=== PATIENT | female | born 1955 | race Caucasian/White ===

== ENCOUNTER 2017-07-23 10:53 | Emergency (ER) | payer MEDICAID ==
[2017-07-23 11:07] VITALS: BP 156/89
--- NOTE | 2017-07-23 11:42 | EDM.PDOC ---
ED HPI GENERAL MEDICAL PROBLEM - General Chief Complaint: Chest Pain Stated Complaint: Chest pain Time Seen by Provider: 07/23/17 11:15 Source of Information: Reports: Patient, Provider (Dr. Chen ), RN Notes Reviewed History Limitations: Reports: No Limitations - History of Present Illness INITIAL COMMENTS - FREE TEXT/NARRATIVE: 61 year old female presents to the ED today for complaints of chest pain. She initially saw Dr. Chen in the clinic today and had an EKG. She was then sent here for further evaluation. The patient says she's had mild, substernal, chest pressure for approximately 17 days. She rates the pain 1-2/10. The pain does radiate into her left neck and down her left arm. She says her chest wall is tender to touch. She denies nausea or vomiting. She denies worsening chest pain with exertion. The pain does not change or improve with rest. She says that massaging the area does help. She says the pain started after her significant other 17 days ago. She reports that he weighted about 370 lbs. She repositioned him on the floor and performed CPR for approximately 15 minutes before EMS arrived. This is what she attribute the pain to. She said she didn't notice the pain for a couple days. She has a history of MS, hypothyroidism. Denies history of [place], CAD, high cholesterol, or hypertension. She smokes 1/2 ppd. No history of lung problems. Treatments SENIOR TALENT MANAGEMENT CONSULTANT: Reports: EKG Left Chest Pain Score (Numeric/FACES): 2 - Related Data Allergies Allergy/AdvReac Type Severity Reaction Status Date / Time Iodine and Iodide Containing Allergy Other Verified 07/23/17 11:09 Produc bees Allergy Anaphylactic Uncoded 06/25/15 13:[address] dye Allergy Airway Uncoded 06/25/15 13:09 Tightness metals Allergy Other Uncoded 06/25/15 13:09 narcotics Allergy Vomiting Uncoded 06/25/15 13:09 Home Meds: Home Meds Cholecalciferol (Vitamin D3) [Vitamin D-3] 4,000 unit PO DAILY 06/25/15 [History ] Levothyroxine [Synthroid] 100 mcg PO ACBREAKFAST 06/25/15 [History] Omeprazole Magnesium [Prilosec Otc] 20 mg PO DAILY 06/25/15 [History] SUMAtriptan [Imitrex] 6 mg SQ ASDIRECTED 06/25/15 [History] Aspirin 81 mg PO BEDTIME 07/23/17 [History] Diazepam [Valium] 5 mg PO TID PRN #15 tablet 07/23/17 [Rx] Multivitamin [Multivitamins] 1 each PO DAILY 07/23/17 [History] Past Medical History Gastrointestinal History: Reports: Other (See Below) Other Gastrointestinal History: heartburn Neurological History: Reports: MS Other Neuro History: optic neuritis Endocrine/Metabolic History: Reports: Hypothyroidism - Past Surgical History GI Surgical History: Reports: Appendectomy Female Surgical History: Reports: Hysterectomy Social & Family History - Tobacco Use Smoking Status *Q: Current Every Day Smoker Years of Tobacco use: 27 Packs/Tins Daily: 0.5 - Recreational Drug Use Recreational Drug Use: No ED ROS GENERAL - Review of Systems Review Of Systems: See Below Constitutional: Reports: No Symptoms. Denies: Fever, Chills Respiratory: Reports: No Symptoms. Denies: Shortness of Breath, Pleuritic Chest Pain, Cough, Sputum Cardiovascular: Reports: Chest Pain. Denies: Dyspnea on Exertion, Edema, Lightheadedness, Palpitations, Syncope GI/Abdominal: Reports: No Symptoms. Denies: Abdominal Pain, Nausea, Vomiting Psychiatric: Reports: Anxiety ED EXAM, GENERAL - Physical Exam Exam: See Below Exam Limited By: No Limitations General Appearance: Alert, WD/WN, No Apparent Distress Respiratory/Chest: No Respiratory Distress, Lungs Clear, Normal Breath Sounds, No Accessory Muscle Use, Other (mild anterior, left chest wall tenderness ) Cardiovascular: Normal Peripheral Pulses, Regular Rate, Rhythm, No Edema, No Murmur GI/Abdominal: Normal Bowel Sounds, Soft, Non-Tender Extremities: Normal Inspection, Normal Range of Motion, Non-Tender. No: Harman' s Sign, Increased Warmth, Redness Neurological: Alert, Oriented, Normal Cognition Skin Exam: Warm, Dry, Intact EKG INTERPRETATION EKG Date: 07/23/17 Time: 10:27 (Performed at [facility] ) Rhythm: NSR (Sinus Sulaiman) Rate (Beats/Min): 58 [place]: Normal P-Wave: Present QRS: Normal ST-T: Normal QT: Normal EKG Interpretation Comments: EKG read by Dr. Crow. No acute ischemic changes. Course - Vital Signs Last Recorded V/S: Last Vital Signs Temp 97.8 F 07/23/17 11:03 Pulse 68 07/23/17 11:03 Resp 16 07/23/17 11:03 BP 156/89 H 07/23/17 11:03 Pulse Ox 96 07/23/17 11:03 - Orders/Labs/Meds Orders: Active Orders 24 hr Category Date Time Status Cardiac Monitoring [RC] . DIRECTED Care 07/23/17 11:25 Active Labs: Laboratory Tests 07/23/17 07/23/17 Range/Units 11:40 11:40 WBC 11.76 H (3.98-10.04) K/mm3 RBC 5.06 (3.98-5.22) M/mm3 Hgb 15.2 (11.2-15.7) gm/L Hct 44.8 (34.1-44.9) % MCV 88.5 (79.4-94.8) fl MCH 30.0 (25.6-32.2) pg MCHC 33.9 (32.2-35.5) g/dl RDW Std Deviation 45.4 (36.4-46.3) fL Plt Count 327 (182-369) K/mm3 MPV 9.3 L (9.4-12.3) fl Neut % (Auto) 52.4 (34.0-71.1) % Lymph % (Auto) 40.6 (19.3-51.7) % [place] % (Auto) 4.2 L (4.7-12.5) % Eos % (Auto) 1.7 (0.7-5.8) Baso % (Auto) 0.9 (0.1-1.2) % Neut # (Auto) 6.17 H (1.56-6.13) K/mm3 Lymph # (Auto) 4.78 H (1.18-3.74) K/mm3 [place] # (Auto) 0.49 H (0.24-0.36) K/mm3 Eos # (Auto) 0.20 (0.04-0.36) K/mm3 Baso # (Auto) 0.10 H (0.01-0.08) K/mm3 Sodium 140 (136-145) mEq/L Potassium 3.9 (3.5-5.1) mEq/L Chloride 106 (98-107) mEq/L Carbon Dioxide 26 (21-32) mEq/L Anion Gap 11.9 (5-15) BUN 11 (7-18) mg/dL Creatinine 0.8 (0.55-1.02) mg/dL Est Cr Clr Drug Dosing 61.86 mL/min Estimated GFR (MDRD) > 60 (>60) mL/min BUN/Creatinine Ratio 13.8 L (14-18) Glucose 97 (74-106) mg/dL Calcium 9.5 (8.5-10.1) mg/dL Total Bilirubin 0.4 (0.2-1.0) mg/dL AST 20 (15-37) U/L ALT 24 (14-59) U/L Alkaline Phosphatase 95 (46-116) U/L Troponin I < 0.017 (0.00-0.056) ng/mL Total Protein 7.7 (6.4-8.2) g/dl Albumin 3.9 (3.4-5.0) g/dl Globulin 3.8 gm/dL Albumin/Globulin Ratio 1.0 (1-2) - Re-Assessments/Exams Free Text/Narrative Re-Assessment/Exam: CBC reveals mildly elevated WBC. CMP is normal. Troponin is WNL. Chest x-ray is negative for acute abnormality. No pleural effusions or infiltrates. Discussed with Dr. Crow. He recommends outpatient follow-up for stress test. We discussed [address] Crow agrees that 3 hour troponin is not needed since the patient has had symptoms for 3 weeks. The patient's symptoms are likely musculoskeletal, however we still recommend stress test as an outpatient. Patient was notified of findings and plan of care. She is agreeable to plan of care. She is requesting Valium for anxiety related to the loss of her significant other. She will be given a small Rx. She was thoroughly educated on return precautions. Discharge instructions as documented. Departure - Departure Time of Disposition: 12:42 Disposition: Home, Self-Care 01 Condition: Good Clinical Impression: Anxiety Prescriptions: Diazepam [Valium] 5 mg PO TID PRN #15 tablet PRN Reason: Anxiety Referrals: Chacho Chen MD [Primary Care Provider] - Forms: ED Department Discharge Additional Instructions: Follow-up with Dr. hCen to discuss referral for stress test Return to ER with any new or worsening symptoms Tylenol as needed for pain Cold pack or heating pad to chest wall to help with discomfort Valium 1/2 to 1 tab up to 3 times a day as needed for anxiety and muscle spasm - My Orders Last 24 Hours: My Active Orders 07/23/17 11:25 Cardiac Monitoring [RC] . DIRECTED - Assessment/Plan Last 24 Hours: My Active Orders 07/23/17 11:25 Cardiac Monitoring [RC] . DIRECTED
--- NOTE | 2017-07-23 12:52 | CR ---
Chest: Portable view of the chest was obtained. Heart size and mediastinum are normal. Lungs are clear. Scoliosis is noted within the spine. Impression: 1. Scoliosis. Nothing acute is appreciated on portable chest x-ray. Diagnostic code #2
== END 2017-07-23 13:05 | disposition home or self-care (01) ==
LOC: JD.ED 10:53
DX: F41.9 Anxiety disorder, unspecified (principal); E03.9 Hypothyroidism, unspecified; F17.210 Nicotine dependence, cigarettes, uncomplicated; Z91.030 Bee allergy status; Z91.041 Radiographic dye allergy status; Z79.899 Other long term (current) drug therapy; Z90.49 Acquired absence of other specified parts of digestive tract; Z90.710 Acquired absence of both cervix and uterus
CPT/HCPCS: 36415; 71010; 71010-26; 80053; 84484; 85025; 99284; 99285